=== PATIENT | female | born 1995 ===

== ENCOUNTER 2024-03-16 07:00 | Day surgery (SDC) | payer OTHER ==
[~2024-03-16] VITALS: Ht 170.2 cm; Wt 76.5 kg
[2024-03-16] MEDS ORDERED: Lactated Ringer's 1,000 ML IV ONE ×2 (07:09→07:50)
[2024-03-16] MEDS ORDERED: propofoL 50 ML IV ONE (07:09)
[2024-03-16] MEDS ORDERED: PRED5 (07:21)
== END 2024-03-16 08:53 | disposition home or self-care (01) ==
LOC: ORSCSDS 07:00
PROVIDERS: Internal Medicine Gastroenterology
PROC: 0DBL8ZX Excision of Transverse Colon, Via Natural or Artificial Opening Endoscopic, Diagnostic (ICD-10-PCS; principal; 2024-03-16 07:45)
PROC: 0DBM8ZX Excision of Descending Colon, Via Natural or Artificial Opening Endoscopic, Diagnostic (ICD-10-PCS; principal; 2024-03-16 07:45)
PROC: 0DBP8ZX Excision of Rectum, Via Natural or Artificial Opening Endoscopic, Diagnostic (ICD-10-PCS; principal; 2024-03-16 07:45)
PROC: 0DBN8ZX Excision of Sigmoid Colon, Via Natural or Artificial Opening Endoscopic, Diagnostic (ICD-10-PCS; principal; 2024-03-16 07:45)
PROC: 0DBH8ZX Excision of Cecum, Via Natural or Artificial Opening Endoscopic, Diagnostic (ICD-10-PCS; principal; 2024-03-16 07:45)
PROC: 0DBB8ZX Excision of Ileum, Via Natural or Artificial Opening Endoscopic, Diagnostic (ICD-10-PCS; principal; 2024-03-16 07:45)
DX: K50.90 Crohn's disease, unspecified, without complications (principal); G35 Multiple sclerosis; K52.9 Noninfective gastroenteritis and colitis, unspecified; Q43.9 Congenital malformation of intestine, unspecified; Z79.899 Other long term (current) drug therapy
CPT/HCPCS: 88305; J2704; J7120